=== PATIENT | female | born 1990 | race African-American/Black ===

== ENCOUNTER 2017-10-24 14:04 | Emergency (ER) | payer MEDICAID ==
[~2017-10-24] VITALS: Ht 157.5 cm; Wt 74.4 kg
--- NOTE | 2017-10-24 15:05 | Emergency Room Report ---
History of Present Illness General Chief Complaint: Pain Present Illness HPI 27-year-old female presents to the emergency department complaining of 10 out of 10 in severity abdominal pain and bilateral flank pain described as cramping in nature. Patient reports that she is 17 weeks she is . Patient reports that it feels as though she is having tab Ward contractions. Patient denies vaginal discharge or bleeding. Patient denies fevers, chills, nausea, vomiting or recent abdominal trauma. Patient denies constipation or diarrhea. Denies CP, Palpitations, LOC, AMS, dizziness, Changes in Vision, Sensation, paresthesias, or a sudden severe headache. Pt. reports hx of preeclampsia during last /delivery. Denies dysuria, hematuria or frequency. Allergies: Coded Allergies: No Known Allergies (Unverified , 10/24/17) Patient History Past Medical History: see triage record Past Surgical History: none Pertinent Family History: none Last Menstrual Period: 06/28/17 Now: Yes : 4 Para: 3 Reviewed Nursing Documentation: PMH: Agreed, PSxH: Agreed Review of Systems All Other Systems: negative except mentioned in HPI Physical Exam Vital Signs Date Time Temp Pulse Resp B/P (MAP) Pulse Ox O2 Delivery O2 Flow Rate FiO2 10/24/17 14:36 98.2 77 18 122/79 98 Room Air 98.2 Sp02 EP Interpretation: reviewed, normal General Appearance: no apparent distress, alert, GCS 15, non-toxic Head: normocephalic, atraumatic ENT: hearing grossly normal, normal voice Neck: full range of motion Respiratory: chest non-tender, lungs clear, normal breath sounds, no respiratory distress, no wheezing, speaking full sentences Cardiovascular #1: regular rate, rhythm, no edema Gastrointestinal: non tender Rectal: deferred Genitourinary: normal inspection, no CVA tenderness, other - pt. declined pelvic exam wants to leave AMA. Musculoskeletal: back normal, gait/station normal, normal range of motion, non- tender Neurologic: alert, oriented x3, responsive, motor strength/tone normal, sensory intact, speech normal, grossly normal Psychiatric: judgement/insight normal Skin: normal color, no rash, warm/dry, well hydrated Medical Decision Making PA Attestation Dr. Meier is my supervising Physician whom patient management has been discussed with. Diagnostic Impression: Primary Impression: Abdominal pain during Qualified Codes: O26.892 - Other specified related conditions, second trimester; R10.9 - Unspecified abdominal pain Additional Impression: Back pain affecting Qualified Codes: O26.892 - Other specified related conditions, second trimester; M54.9 - Dorsalgia, unspecified ER Course 27-year-old female presents to the emergency department complaining of 10 out of 10 in severity abdominal pain and bilateral flank pain described as cramping in nature. Patient reports that she is 17 weeks she is . Patient reports that it feels as though she is having tab Ward contractions. Patient denies vaginal discharge or bleeding. Patient denies fevers, chills, nausea, vomiting or recent abdominal trauma. Patient denies constipation or diarrhea. Denies CP, Palpitations, LOC, AMS, dizziness, Changes in Vision, Sensation, paresthesias, or a sudden severe headache. Pt. reports hx of preeclampsia during last /delivery. Denies dysuria, hematuria or frequency. Ddx considered but are not limited to: , ectopic ,Spontaneous , Ovarian torsion, Ovarian cyst. PID, acute appendicitis, gall stones, gastritis , impending labor and delivery. Vital signs: are WNL, pt. is afebrile H&PE are most consistent with: abdominal pain/cramping during second trimester of . ORDERS: -UA: Pending at time of AMA decision ED INTERVENTIONS: None at this time. Discussed with patient that she will require evaluation at OB/L&D facility in addition to monitoring. Discussed the patient that this is not performed here at our facility and that we will provide transport to appropriate facility after determining that she is stable for transport. Patient decided that she wanted to drive herself to L&D facility. Patient declines further workup. In the emergency department and declines facilitation of transport. DISPOSITION: - At this time the patient is requesting to leave AGAINST MEDICAL ADVICE. I believe that this patient has the capacity to make sound and educated decisions on her own. I discussed with the patient the risks of leaving AMA, and not being appropriately evaluated for her abdominal symptoms during . D/w pt. that some of these risks include delay in diagnosis and treatment, as well as worsening of symptoms, organ damage, and permanent disability or even to her or her child. After discussing these risks with the patient. She continues to express Her want to leave AGAINST MEDICAL ADVICE and take her own personal transport to an appropriate facility. I encouraged the patient to return at any time, and that she will be welcome here in the emergency department to continue medical management. Last Vital Signs Date Time Temp Pulse Resp B/P (MAP) Pulse Ox O2 Delivery O2 Flow Rate FiO2 10/24/17 14:36 98.2 77 18 122/79 98 Room Air 98.2 Disposition: AGAINST MEDICAL ADVICE Condition: Stable Patient Instructions: Abdominal Pain During , [id number] Additional Instructions: You are leaving AMA, before diagnostic testing and transport to appropriate OBGYN Facility can be performed. . This can cause delayed diagnosis as well as treatment, and ultimately leading up to worsening of symptoms, damage to organs , permanent disability or even . You are encouraged to return to the ER at any time if you want to continue your evaluation, and have transport facilitated to a facility that has L & D. Sarah Mcintyre Oct 24, 2017 15:05
[2017-10-24 15:12] LABS: APPEARANCE,URINE SLIGHTLY CLOUDY; BILIRUBIN, URINE NEGATIVE (NEGATIVE); GLUCOSE, URINE (UA) NEGATIVE (NEGATIVE); KETONES,URINE NEGATIVE (NEGATIVE); LEUKOCYTE ESTERASE ,URINE 1+ (NEGATIVE); NITRITE,URINE NEGATIVE (NEGATIVE); PH,URINE 7 (4.5-8.0); PROTEIN,URINE NEGATIVE (NEGATIVE); UROBILINOGEN,URINE 4 MG/DL (0.0-1.0)
[2017-10-24 15:15] LABS: COLOR,URINE YELLOW
[2017-10-24 15:20] VITALS: BP 118/70
== END 2017-10-24 15:20 | disposition left against medical advice (07) ==
LOC: EMR 15:03
DX: O26.892 Other specified pregnancy related conditions, second trimester (principal); Z3A.17 17 weeks gestation of pregnancy; R10.9 Unspecified abdominal pain; M54.9 Dorsalgia, unspecified
CPT/HCPCS: 81003; 99283